=== PATIENT | female | born 1985 | race Caucasian/White ===

== ENCOUNTER → 2016-06-20 | Outpatient (CLI) | payer BC ==
--- NOTE | 2016-06-20 14:03 | DI ---
PELVIC ULTRASOUND, 06/20/2016 12:53 PM Clinical History: Right lower quadrant pain. Previous Exam: None at this facility. Technique: Transabdominal and transvaginal scans are performed. The uterus measures 35 x 50 x 95 mm. The uterus itself appears normal. The central uterine stripe kimberley sures 4 mm. The ovaries are normal and demonstrate vascular flow. There are no fluid collections or m asses. Reading: Normal pelvic ultrasound.
== END ==
LOC: US 12:47
PROVIDERS: ATTEND Student in an Organized Health Care Education/Training Program
DX: R10.2 Pelvic and perineal pain (principal); R10.31 Right lower quadrant pain
CPT/HCPCS: 76830; 76856

== ENCOUNTER → 2016-09-30 | Outpatient (CLI) | payer BC ==
--- NOTE | 2016-09-30 21:16 | DI ---
XR SACRUM/COCCYX MIN 2VW,09/30/2016 1:13 PM: Clinical History: Sacral back pain Previous Exam: None at this facility. Findings: 3 views of the pelvis are obtained, and demonstrate anatomic alignment without fractures. The lower l umbar spine, sacrum and both hips are normal. A nonobstructive bowel gas pattern is seen. Impression: No fractures.
--- NOTE | 2016-10-01 09:01 | DI ---
XR L-SPINE MIN 4 VW,09/30/2016 1:17 PM: Clinical History: Sacral back pain Previous Exam: None at this facility. Findings: AP, lateral, flexion and extension views of the lumbar spine are obtained, and demonstrate anatomic a lignment without fractures. Vertebral body height is preserved. There is no evidence of osteolysis no r spondylolisthesis. No pathologic calcifications are seen. A nonobstructive bowel gas pattern is noted. Impression: Normal lumbar spine.
== END ==
LOC: ORTHO 13:46
PROVIDERS: ATTEND Physician Assistant
DX: M53.3 Sacrococcygeal disorders, not elsewhere classified (principal)
CPT/HCPCS: 72110; 72220

== ENCOUNTER → 2016-10-08 | Outpatient (CLI) | payer BC ==
--- NOTE | 2016-10-08 13:26 | DI ---
CT PELVIS W/O CONTRAST,10/08/2016 9:51 AM: Clinical History: Radicular pain of the sacrum. Previous Exam: None at this facility. Findings: Multiple helically acquired CT images are obtained through the bony pelvis without contrast, and demo nstrate anatomic alignment without fractures. There is some mild sclerosis of the sacroiliac joints. There is some vacuum disc phenomenon noted within the sacroiliac joints as well. The urinary bladder is unremarkable. The uterus and ovaries are not well evaluated. The appendix is normal. Impression: 1. Mild sclerosis of the sacroiliac joints with vacuum disc phenomenon. This is most consistent with sacroiliitis, which can be associated with autoimmune disorders and inflammatory bowel disease, but c an also exist independently.
== END ==
LOC: CT 09:46
PROVIDERS: ATTEND Neurological Surgery
DX: M54.18 Radiculopathy, sacral and sacrococcygeal region (principal); M46.1 Sacroiliitis, not elsewhere classified
CPT/HCPCS: 72192

== ENCOUNTER → 2016-10-13 | Outpatient (CLI) | payer BC ==
[2016-10-13 14:28] LABS: HEMATOCRIT 43.8 % (37.0-47.0); HEMOGLOBIN 15.3 g/dL (12.0-16.0); MEAN CORPUSCULAR HEMOGLOBIN 28.8 PG (27-31); MEAN CORPUSCULAR HGB CONC 34.9 g/dL (33-37); MEAN CORPUSCULAR VOLUME 82.3 FL (81-99); MEAN PLATELET VOLUME 10.2 FL (7.4-12.2); RED BLOOD COUNT 5.32 10^6/uL (4.20-5.40)
[2016-10-13 14:43] LABS: C-REACTIVE PROTEIN 1.2 mg/dL (0.0-0.9); URIC ACID 5.2 mg/dl (2.5-6.2)
== END ==
LOC: LAB 14:06
PROVIDERS: ATTEND Neurological Surgery
DX: M53.3 Sacrococcygeal disorders, not elsewhere classified (principal); M47.817 Spondylosis without myelopathy or radiculopathy, lumbosacral region
CPT/HCPCS: 36415; 84550; 85027; 85652; 86038; 86140; 86200; 86812; 86850

== ENCOUNTER → 2016-11-03 | Outpatient (CLI) | payer BC ==
--- NOTE | 2016-11-03 14:18 | DI ---
MRI LUMBAR SPINE SCAN WITHOUT IV CONTRAST, 11/03/2016 12:59 PM: Clinical History: Low back pain. Previous Exam: None. Technique: Sagittal and axial T2 weighted; sagittal T1 weighted and T2 STIR; and axial PD. The vertebral bodies are of normal height and size. Scans were extended down to S5. There is mild L5- S1 disc space narrowing with desiccation change and a minimal grade 1 reverse spondylolisthesis. The remaining disc spaces are of normal height and signal pattern. The cord terminates at T12. The conus medullaris is normal. The disc spaces from T11-12 through L4-5 are normal. L5-S1 has a focal small di sc herniation just to the right of midline that is effacing the epidural fat along the anteromedial m argin of the right S1 nerve root. This disc herniation potentially can cause impingement on the right S1 nerve root. There is no canal or neural foraminal stenosis. Readin. There is a focal disc herniation anteriorly just to the right of midline at L5-S1. This disc jannet iation potentially can cause impingement of the right S1 nerve root. There is no canal or neural fora brayan stenosis. There is a minimal grade 1 reverse spondylolisthesis. 2. The disc spaces from T11-12 through L4-5 are normal. 3. The scans extended down to the level of S5 and show no abnormal signal pattern in the bone. This patient had a CT scan of the pelvis from 10/08/2016 that demonstrated the entire sacrum and coccyx. No fractures of the sacrum or coccyx were present at that time.
== END ==
LOC: MRI 12:54
PROVIDERS: ATTEND Neurological Surgery
DX: M54.5 Low back pain (principal); M51.17 Intervertebral disc disorders with radiculopathy, lumbosacral region; M43.17 Spondylolisthesis, lumbosacral region
CPT/HCPCS: 72148